=== PATIENT | male | born 1955 | race Caucasian/White ===

== ENCOUNTER → 2018-07-16 | Outpatient (CLI) | payer MEDICARE, MEDICAID | END | disposition home or self-care (01) | LOC: CFH 15:12 | PROVIDERS: ATTEND Family Medicine | DX: M79.605 Pain in left leg (principal); R60.0 Localized edema ==

== ENCOUNTER 2019-02-13 12:41 | Emergency (ER) | payer MEDICAID, MEDICARE ==
[~2019-02-13] VITALS: Ht 182.9 cm; Wt 78.5 kg
--- NOTE | 2019-02-13 13:09 | NUR ---
Law at bedside to assess pt. Pt's sister reports that he "hasn't had a bowel movement in 2 weeks" was directed by GI MD to start taking Miralax yesterday, also took senna & "a chocolate laxative" & that pt is not passing gas today. Pt's sister reports that pt had water stool after laxative
--- NOTE | 2019-02-13 13:30 | NUR ---
RECEIVED BEDSIDE REPORT FROM ELIZABETH CARDENAS. ASSUMING PT CARE AT THIS TIME. NO ACUTE DISTRESS NOTED.
[2019-02-13 13:34] LABS: BASOPHILS # (AUTO) 0.03 x10^3/uL (0-0.1); BASOPHILS % (AUTO) 1 % (0-1); EOSINOPHILS # (AUTO) 0.17 x10^3/uL (0-0.4); EOSINOPHILS % (AUTO) 4 % (1-7); LYMPHOCYTES # (AUTO) 1.54 x10^3/uL (1-3.4); LYMPHOCYTES % (AUTO) 36 % (22-44); MD NO; MEAN CORPUSCULAR HEMOGLOBIN 32.6 pg (27.5-34.5); MEAN CORPUSCULAR HGB CONC 34.4 g/dL (33.2-36.2); MEAN CORPUSCULAR VOLUME 94.6 fL (81-97); MEAN PLATELET VOLUME 8.3 fL (7.4-10.4); MONOCYTES # (AUTO) 0.54 x10^3/uL (0.2-0.8); MONOCYTES % (AUTO) 13 % (2-9); NEUTROPHILS # (AUTO) 1.97 x10^3/uL (1.8-6.8); NEUTROPHILS % (AUTO) 46 % (42-75); PLATELET COUNT 238 x10^3/uL (130-400); RED BLOOD COUNT 4.57 x10^6/uL (4.38-5.82); RED CELL DISTRIBUTION WIDTH 13.7 % (9.4-14.8)
--- NOTE | 2019-02-13 13:39 | NUR ---
PT BACK TO ROOM FROM IMAGING.
[2019-02-13 13:42] LABS: ALANINE AMINOTRANSFERASE 28 U/L (12-78); ALBUMIN 3.8 g/dL (3.4-5.0); ANION GAP 5 mmol/L (5-15); CALCIUM 9.2 mg/dL (8.5-10.1); CHLORIDE 105 mmol/L (98-107)
[2019-02-13 13:45] LABS: ALKALINE PHOSPHATASE 72 U/L (45-117); BILIRUBIN,TOTAL 0.7 mg/dL (0.2-1.0); TOTAL PROTEIN 8.2 g/dL (6.4-8.2)
[2019-02-13 14:04] VITALS: BP 137/76
--- NOTE | 2019-02-13 14:05 | NUR ---
PT RESTING ON GURNEY. NO ACUTE DISTRESS NOTED. PT STATES HIS SISTER IS HIM, BUT SHE IS OUT OF ROOM AT THIS TIME. NO NEEDS REQUESTED AT THIS TIME.
--- NOTE | 2019-02-13 14:56 | NUR ---
Patient/Caregiver given discharge instructions and they have confirmed that they understand the instructions. Patient ambulatory with steady gait. PT LEFT WITH ALL PERSONAL BELONGINGS.
== END 2019-02-13 14:58 | disposition home or self-care (01) ==
LOC: ED 14:21
DX: K59.00 Constipation, unspecified (principal); R10.84 Generalized abdominal pain; Z90.49 Acquired absence of other specified parts of digestive tract
CPT/HCPCS: 36415; 74021; 80053; 83690; 85025; 99284

== ENCOUNTER 2019-08-12 12:49 | Outpatient (CLI) | payer MEDICARE, MEDICAID ==
[2019-08-12 14:46] LABS: CHLORIDE 105 mmol/L (98-107)
[2019-08-12 15:22] LABS: ALANINE AMINOTRANSFERASE 26 U/L (12-78); ALBUMIN 3.6 g/dL (3.4-5.0); ALKALINE PHOSPHATASE 78 U/L (45-117); ANION GAP 7 mmol/L (5-15); BILIRUBIN,TOTAL 0.5 mg/dL (0.2-1.0); CALCIUM 8.9 mg/dL (8.5-10.1); CREATININE 0.76 mg/dL (0.7-1.3); TOTAL PROTEIN 8.3 g/dL (6.4-8.2)
[2019-08-12 15:25] LABS: FOLATE LEVEL > 20.0 ng/mL (3.1-17.5)
== END 2019-08-12 23:59 | disposition home or self-care (01) ==
LOC: LAB 12:49
PROVIDERS: ATTEND Family Medicine
DX: I10 Essential (primary) hypertension (principal); R41.89 Other symptoms and signs involving cognitive functions and awareness
CPT/HCPCS: 36415; 80053; 82306; 82607; 82746; 84443

== ENCOUNTER → 2020-01-30 | Outpatient (CLI) | payer MEDICAID, MEDICARE ==
[2020-01-30 13:55] LABS: FOLATE LEVEL > 20.0 ng/mL (3.1-17.5)
== END | disposition home or self-care (01) ==
LOC: LAB 12:55
PROVIDERS: ATTEND Family Medicine
DX: R41.89 Other symptoms and signs involving cognitive functions and awareness (principal)
CPT/HCPCS: 36415; 82607; 82746; 84443; 86592